=== PATIENT | male | born 1960 | race Caucasian/White ===

== ENCOUNTER 2019-01-31 03:06 | Emergency (ER) | payer MEDICARE ==
[~2019-01-31] VITALS: Ht 177.8 cm; Wt 60.8 kg
[2019-01-31 03:34] LABS: ABSOLUTE EOSINOPHILS 0.2 thou/uL (0.0-0.7); ABSOLUTE LYMPHOCYTES 1.1 thou/uL (0.8-5.3); ABSOLUTE MONOCYTES 0.9 thou/uL (0.0-1.2); ABSOLUTE NEUTROPHILS 7.9 thou/uL (1.6-8.1); BASOPHILS 0.1 %; EOSINOPHILS 1.5 %; HEMATOCRIT 38.7 % (42.0-52.0); HEMOGLOBIN 13.3 gm/dL (14.0-18.0); LYMPHOCYTES 10.8 %; MCH 31.2 pg (26.0-34.0); MCHC 34.4 g/dL (28.0-37.0); MCV 90.6 fL (80.0-100.0); MONOCYTES 9.3 %; MPV 7.7 fl. (7.2-11.1); NUCLEATED RBCS 0 /100WBC; PLATELET COUNT* 214 thou/uL (150-400); POLYS 78.3 %; RBC 4.27 mil/uL (4.50-6.00); RDW-CV 13.4 % (10.5-14.5); WBC 10.1 thou/uL (4.0-11.0)
[2019-01-31 03:42] LABS: CALCIUM 8.4 mg/dL (8.5-10.1); CREATININE 0.9 mg/dL (0.6-1.3); POTASSIUM 3.7 mmol/L (3.5-5.1)
[2019-01-31 03:46] LABS: TOTAL BILIRUBIN 0.8 mg/dL (<0.1-1.0); TOTAL PROTEIN 6.7 g/dL (6.4-8.2)
[2019-01-31 03:49] LABS: INFLUENZA A ANTIGEN Negative (Negative); INFLUENZA B ANTIGEN Negative (Negative)
[2019-01-31] MEDS ORDERED: PROAIR HFA8.5 GM INH (04:41)
[2019-01-31] MEDS ORDERED: PREDNISONE50 MG PO (04:41)
[2019-01-31 05:14] VITALS: BP 107/68
== END 2019-01-31 05:16 | disposition home or self-care (01) ==
LOC: M.ERS 03:06
PROVIDERS: Emergency Medicine
DX: J06.9 Acute upper respiratory infection, unspecified (principal)